=== PATIENT | male | born 1970 | race Caucasian/White ===

== ENCOUNTER → 2023-01-11 | Outpatient (CLI) | payer OTHER, SELFPAY ==
--- NOTE | 2023-01-11 09:10 | RAD_ITS ---
STUDY: X-RAY - PELVIS AND BILATERAL HIPS REASON FOR EXAM: Male, 52 years old. Pain. Evaluate for arthritis. TECHNIQUE: AP view of the pelvis.? 2 views of the right hip, and 2 views of the left hip were obtained. COMPARISON: None. FINDINGS: There is a non-specific bowel gas pattern. Normal visualized soft tissue structures. Normal bilateral iliac wings, sacroiliac joints and visualized sacrum. Normal bilateral superior and inferior pubic rami. Normal pubic symphysis. Normal bilateral ischial tuberosities. Normal visualized right femoral head. Separate ossification center for the acetabulum (os acetabuli). Normal right hip joint. Normal visualized left femoral head. Separate ossification center for the acetabulum (os acetabuli). Normal left hip joint. RAD/Hips B/L min 2 views w/ Pelvis IMPRESSION: No significant abnormality identified. Electronically Signed: Cornell Butcher MD at 11:15 EDT ,
== END | disposition home or self-care (01) ==
PROVIDERS: Referring Provider Chiropractor; Visit Provider Chiropractor
DX: M13.80 Other specified arthritis, unspecified site (principal)
CPT/HCPCS: 73521

== ENCOUNTER → 2023-02-13 | Outpatient (CLI) | payer OTHER, SELFPAY ==
--- NOTE | 2023-02-13 12:49 | RAD_ITS ---
STUDY: X-RAY - RIGHT KNEE REASON FOR EXAM: Male, 52 years old. Other specified arthritis, right knee. TECHNIQUE: 3 views of the right knee. COMPARISON: None. FINDINGS: Normal visualized distal femur. Normal visualized proximal tibia and fibula. Normal proximal tibiofibular articulation. There is no demonstrated fracture. Normal medial femorotibial compartment. Normal lateral femorotibial compartment. Normal patellofemoral articulation. There is a small knee joint effusion. The soft tissue structures are unremarkable. RAD/Knee 3 Views IMPRESSION: Small knee joint effusion. No demonstrated fracture. Electronically Signed: Jagdish Camacho MD at 14:10 EST ,
== END | disposition home or self-care (01) ==
LOC: RAD 12:43
PROVIDERS: Referring Provider Chiropractor; Visit Provider Chiropractor
DX: M13.861 Other specified arthritis, right knee (principal)
CPT/HCPCS: 73562